=== PATIENT | female | born 1985 | race Caucasian/White ===

== ENCOUNTER 2018-09-30 10:47 | Day surgery (SDC) | payer OTHER, SELFPAY ==
[2018-09-27 07:58] VITALS: BMI 23.5
[2018-09-30 11:58] VITALS: BP 99/63; PULSE 50; RESP 18; TEMP 36.6; O2SAT 100; BMI 23.5
[2018-09-30] MEDS: CEFAZOLIN 2 GM/100 ML FROZ.PIGGY IV (13:07)
--- NOTE | 2018-09-30 13:07 | PM.PREOP ---
Pre-operative Note Interval Note History & Physical reviewed/Exam performed by Physician: Yes Changes to H&P: No
--- NOTE | 2018-09-30 13:07 | PM.OP.1 ---
Operative Date/Time/Diagnoses Date of procedure: 09/30/18 Time of procedure: 13:07 Pre-op diagnosis: Right fourth painful hammertoe with nail impingement Post-op diagnosis: same Procedure & Clinicians Procedure: Right fourth toe total matrixectomy Same procedure as scheduled: Yes Indications: Painful nail impingment fourth toe right foot. Surgeon: Maryana Watts Click Yes if Unassisted: Yes Anesthesia Type: General Operative Notes Closure Type: not applicable Specimen(s): none sent Estimated Blood Loss (mL): 1 Blood products transfused: none Procedure in detail: Patient was brought to the operating room and placed on the operative table in supine position. Following induction of general anesthesia the recorded injectables were delivered to the patient. The right foot was prepped and draped in the usual aseptic manner. After check of anesthesia a Jorgito drain was placed about the right fourth toe. The fourth toenail was removed gently in total. The surrounding skin was protected with triple antibiotic ointment and a series of 4 applications of phenol at 30 sec each were placed in the area. Following each the area was curetted and after the last was rinsed with alcohol. The jorgito tourniquet was removed, a prompt hyperemic response was seen to the toe. The area was cleaned and dressed with triple antibiotic ointment, Xeroform, 4x4s, and gently placed coban. Complications: none Condition: stable Disposition: PACU Plan for aftercare: Following a period of postoperative monitoring, the patient be discharged home on written and oral postoperative instructions including keeping the dressing dry and intact until tomorrow when her first dressing change and soaking will be performed, avoiding significant ambulation on the foot, elevating the foot when seated home. DVT prevention techniques have been reviewed. We will see her in approx 7-10 days for f/u.
--- NOTE | 2018-09-30 13:24 | SUR.OPER ---
Supine on padded OR bed, head on pillow, arms secured on padded arm boards at <90 degrees abduction, legs uncrossed, safety belt at thigh, tape over blanket over lower legs.
[2018-09-30] MEDS: LIDOCAINE 2% INJ MDV 20 ML INJ (13:32)
[2018-09-30] MEDS: BUPIVACAINE 0.5% (PF) VIAL 30 ML INJ (13:33)
[2018-09-30 13:50] VITALS: BP 82/50; PULSE 41; RESP 10; TEMP 37.2; O2SAT 100
[2018-09-30 13:55] VITALS: BP 88/61; PULSE 44; RESP 11; O2SAT 100
[2018-09-30 13:59] VITALS: BP 92/54; PULSE 45; RESP 8; O2SAT 100
[2018-09-30 14:08] VITALS: BP 101/60; PULSE 50; RESP 12; TEMP 36.8; O2SAT 100
[2018-09-30 14:33] VITALS: BP 105/65; PULSE 56; RESP 16; TEMP 36.6; O2SAT 99
== END 2018-09-30 14:33 | disposition home or self-care (01) ==
LOC: OR 10:48
PROVIDERS: Visit Provider Podiatrist
PROC: 0HTRXZZ Resection of Toe Nail, External Approach (ICD-10-PCS; CPT 11750; principal; 2018-09-30 12:15)
DX: M20.41 Other hammer toe(s) (acquired), right foot (principal); M79.674 Pain in right toe(s); L84 Corns and callosities
CPT/HCPCS: 11750; J0690; J1100; J2250; J2405; J2704; J3010